=== PATIENT | male | born 1965 | race Caucasian/White ===

== ENCOUNTER 2016-11-06 09:52 | Emergency (ER) | payer SELFPAY ==
--- NOTE | 2016-11-06 10:37 | ER Document Report ---
HPI - HPI Patient complains to provider of: pain Pain Level: 5 Context: 51 yo male with hx/o chronic neck, back and knee pain. ran out of pain meds yesterday. was in pain management in [place]. Taking Dilaudid 8mg QID. Lost insurance, recently moved back to [place]. Denies any new injury or symptoms. Feels like he is going into withdrawls. Increased pain, nausea, skin crawling Associated Symptoms: None Exacerbated by: Movement Relieved by: Other - narcotics Similar symptoms previously: Yes Recently seen / treated by doctor: No - ROS Systems Reviewed and Negative: Yes All other systems reviewed and negative - DERM Skin Color: Normal, [place] Past Medical History - General Information source: Patient - Social History Smoking Status: Current Every Day Smoker Chew tobacco use (# tins/day): No Frequency of alcohol use: None Drug Abuse: None Lives with: Family, Spouse/Significant other Family History: Reviewed & Not Pertinent Renal/ Medical History: Denies: Hx Peritoneal Dialysis GI Medical History: Reports: Hx Gastroesophageal Reflux Disease Musculoskeltal Medical History: Reports Other - chronic neck, back and knee pain Past Surgical History: Reports: Hx Orthopedic Surgery - cervical fusion, lt shoulder 2002 - Immunizations Hx Diphtheria, Pertussis, Tetanus Vaccination: Yes Vertical Provider Document - CONSTITUTIONAL Agree With Documented VS: Yes Exam Limitations: No Limitations General Appearance: Mild Distress - INFECTION CONTROL TRAVEL OUTSIDE OF THE [place] IN LAST 30 DAYS: No - HEENT HEENT: Normal ENT Exam, PERRLA - NECK Neck: Supple - + lower cervical tenderness - RESPIRATORY Respiratory: Breath Sounds Normal, No Respiratory Distress O2 Sat by Pulse Oximetry: 100 - CARDIOVASCULAR Cardiovascular: Regular Rate, Regular Rhythm - BACK Back: Abnormal Inspection - + left lumbar spinal tenderness, + left SI tenderness - MUSCULOSKELETAL/EXTREMETIES Musculoskeletal/Extremeties: Tender - right supra and infrapatellar tenderness. no effusion. + medial compartment tenderness - NEURO Level of Consciousness: Awake, Alert, Appropriate Motor/Sensory: No Motor Deficit, No Sensory Deficit - DERM Integumentary: Warm, Dry Course - Re-evaluation Re-evalutation: 11/06/16 10:37 explained to patient ER does not manage chronic pain. checked [place] Controlled Substance Report, no recent prescriptions filled. pt has been established with Dr Small, [facility] [place]. Recommended he follow up with him immediately for further pain control. Pt aware that Rx will not be refilled in ED - Vital Signs Vital signs: Temp Pulse Resp BP Pulse Ox 98.3 F 71 18 121/86 H 100 11/06/16 09:54 11/06/16 09:54 11/06/16 09:54 11/06/16 09:54 11/06/16 09:54 Discharge - Discharge Clinical Impression: Chronic pain Qualifiers: Chronic pain type: other chronic pain Qualified Code(s): G89.29 - Other chronic pain Condition: Stable Disposition: HOME, SELF-CARE Instructions: Low Back Pain ([facility]), Oral Narcotic Medication ([facility]) Additional Instructions: Follow up with Dr Geovanny QUESADA for further pain management ED will not refill pain medication Prescriptions: Oxycodone HCl/Acetaminophen [Percocet 10-325 Mg Tablet] 1 each PO Q4H #25 tablet
[2016-11-06] MEDS ORDERED: OXYCODONE-ACETAMINOPHEN 5-325 MG TABLET PO ONE (10:41)
[2016-11-06 11:07] VITALS: BP 130/95
== END 2016-11-06 11:00 | disposition home or self-care (01) ==
LOC: ER 09:52
DX: G89.29 Other chronic pain (principal); M54.2 Cervicalgia; M54.9 Dorsalgia, unspecified; M25.561 Pain in right knee
CPT/HCPCS: 99283

== ENCOUNTER 2017-05-11 14:54 | Emergency (ER) | payer OTHER ==
--- NOTE | 2017-05-11 15:35 | ER Document Report ---
HPI - HPI Pain Level: 5 Notes: Patient is a 51-year-old male with a history of chronic right knee pain who presents to the ED complaining of right knee pain and left hip pain status post injury while at work on Friday. Patient states that he stepped between an area where there is no floor and hit his right knee and left hip off of a joist. Pt states that his hip became wedged. Pt has had pain to the iliac crest area as well as the knee. The pains do not radiate. Pt states that he has not been walking much at home bc of the pain. Pt states he has bad arthritis to the rt knee and meniscal tears, but does not have insurance to get the knee fixed at this time. He has not noticed any obvious swelling or bruising. Denies any drug allergies or other significant medical history. Denies any headache, fever , head injury, neck pain, chest pain, palpitations, syncope, cough, shortness of breath, wheeze, dyspnea, abdominal pain, nausea/vomiting/diarrhea, urinary retention, dysuria, hematuria, loss of control of bowel or bladder, numbness/ tingling, saddle anesthesia, muscle paralysis/weakness, or rash. - ROS Notes: REVIEW OF SYSTEMS: CONSTITUTIONAL : Denies fever, chills, or sweats. Denies recent illness. EENT: Denies eye, ear, throat, or mouth pain or symptoms. Denies nasal or sinus congestion or discharge. Denies throat, tongue, or mouth swelling or difficulty swallowing. CARDIOVASCULAR: Denies chest pain. Denies palpitations or racing or irregular heart beat. Denies ankle edema. RESPIRATORY: Denies cough, cold, or chest congestion. Denies shortness of breath, difficulty breathing, or wheezing. GASTROINTESTINAL: Denies abdominal pain or distention. Denies nausea, vomiting , or diarrhea. Denies blood in vomitus, stools, or per rectum. Denies black, tarry stools. Denies constipation. GENITOURINARY: Denies difficulty urinating, painful urination, burning, frequency, blood in urine, or discharge. MUSCULOSKELETAL: see hpi SKIN: Denies rash, lesions or sores. NEUROLOGICAL: Denies confusion or altered mental status. Denies passing out or loss of consciousness. Denies dizziness or lightheadedness. Denies headache. Denies weakness or paralysis or loss of use of either side. Denies problems with gait or speech. Denies sensory loss, numbness, or tingling. ALL OTHER SYSTEMS REVIEWED AND NEGATIVE. Dictation was performed using [employer] voice recognition software - DERM Skin Color: Normal Past Medical History - Social History Smoking Status: Unknown if Ever Smoked Family History: Reviewed & Not Pertinent Patient has suicidal ideation: No Patient has homicidal ideation: No Renal/ Medical History: Denies: Hx Peritoneal Dialysis GI Medical History: Reports: Hx Gastroesophageal Reflux Disease Past Surgical History: Reports: Hx Orthopedic Surgery - cervical fusion, lt shoulder 2003 - Immunizations Hx Diphtheria, Pertussis, Tetanus Vaccination: Yes Vertical Provider Document - CONSTITUTIONAL Agree With Documented VS: Yes Notes: PHYSICAL EXAMINATION: GENERAL: Well-appearing, well-nourished and in no acute distress. A&Ox4 LUNGS: Breath sounds clear to auscultation bilaterally and equal. No wheezes rales or rhonchi. HEART: Regular rate and rhythm without murmurs, rubs, gallops. ABDOMEN: Soft, nontender, nondistended abdomen. No guarding, no rebound. No masses appreciated. Normal bowel sounds present. No CVA tenderness bilaterally. No pulsatile mass. No ecchymosis, abrasion, laceration noted. Musculoskeletal: LROM to passive/active of the right knee. Strength 5+/5. No deficits noted. + anterior knee tenderness as well as to the patella and joint lines b/l. + tenderness to the left iliac crest area. No obvious ecchymosis, swelling, or deformity noted. FROM to the hip. Back: FROM to passive/active. Strength 5+/5. No vertebral point tenderness, stepoffs, or deformities. No other bony tenderness or ecchymosis. SLR negative b/l. Extremities: No cyanosis, clubbing, or edema b/l. Peripheral pulses 2+. Capillary refill less than 2 seconds. NEUROLOGICAL: Cranial nerves grossly intact. Normal speech, ataxic gait. Normal sensory, motor exams. Reflexes 2+ b/l. PSYCH: Normal mood, normal affect. SKIN: Warm, Dry, normal turgor, no rashes or lesions noted. - INFECTION CONTROL TRAVEL OUTSIDE OF THE U.S. IN LAST 30 DAYS: No - RESPIRATORY O2 Sat by Pulse Oximetry: 99 Course - Re-evaluation Re-evalutation: 05/11/17 16:23 Patient is an afebrile, well-hydrated, 51-year-old male who presents the ED with right knee pain and left hip pain status post injury, I suspect that this is a contusion based on H&P. Vitals are stable. PE is otherwise unremarkable for any neurovascular compromise, obvious tendon/ligament rupture, obvious fracture or dislocation. X-ray of the left hip and the right knee were also unremarkable for any acute pathology. Patient is continuing to ask for pain medication. Pt has received 600 tabs of oxycodone 15mg since December by his PCM for chronic pain with the last script of #60 being filled 5 days ago. Patient states that he lost his prescription when he fell. No narcotics will be given today. Toradol was given IM today. Recommend conservative measures for symptoms. Recheck with your PCM this week. Consider consult with orthopedics and physical therapy. I will send him home with a prescription for naproxen. Return to the ED with any worsening/concerning symptoms otherwise as reviewed in discharge. Patient is in agreement. - Vital Signs Vital signs: Temp Pulse Resp BP Pulse Ox 98.3 F 100 14 140/96 H 99 05/11/17 14:55 05/11/17 14:55 05/11/17 14:55 05/11/17 14:55 05/11/17 14:55 Discharge - Discharge Clinical Impression: Left hip pain Knee pain, right Qualifiers: Chronicity: acute Qualified Code(s): M25.561 - Pain in right knee Condition: Stable Disposition: HOME, SELF-CARE Instructions: Knee Exercise Program ([facility]), Contusion ([facility]), Ice & Elevation ( [facility]) Additional Instructions: Rest, Ice, Compression, Elevation Tylenol/ibuprofen as needed Light stretches daily Strength exercises as able Moist heat and massage may help F/u with your PCP in 3-5 days for a recheck Consider consult(s) with Orthopedics/physical therapy for ongoing/worsening symptoms Return to the ED with any worsening symptoms and/or development of fever, headache, chest pain, palpitations, syncope, shortness of breath, trouble breathing, abdominal pain, n/v/d, muscle weakness/paralysis, numbness/tingling, swelling, redness, or other worsening symptoms that are concerning to you. Prescriptions: Naproxen 500 mg PO BID PRN #30 tablet PRN Reason: Forms: Elevated Blood Pressure Referrals: BAKARI BUNN DO [Primary Care Provider] - Follow up in 3-5 days [facility] [Provider Group] - Follow up as needed
[2017-05-11] MEDS ORDERED: KETOROLAC TROMETHAMINE INJ/PF 30 MG/1 ML SDV IM ONE (15:59)
--- NOTE | 2017-05-11 16:16 | RADIOLOGY REPORT (SQ) ---
EXAM DESCRIPTION: HIP LEFT AP/LATERAL COMPLETED DATE/TIME: 05/11/2017 4:07 pm REASON FOR STUDY: Lt hip pain s/p injury COMPARISON: None. NUMBER OF VIEWS: Two views. TECHNIQUE: AP pelvis and additional frog-leg view of the left hip. LIMITATIONS: None. FINDINGS: MINERALIZATION: Normal. LEFT HIP: No fracture or dislocation. Degenerative changes. No worrisome bone lesions. RIGHT HIP: No fracture or dislocation. Degenerative changes. No worrisome bone lesions. PUBIS AND ISCHIUM: No fracture. PELVIS: No fracture. SACRUM: No fracture or dislocation. No worrisome bone lesions. LOWER LUMBAR SPINE: No fracture or dislocation. No worrisome bone lesions. No significant disc disea se. SOFT TISSUES: No findings. OTHER: No other significant finding. IMPRESSION: DEGENERATIVE CHANGES. NO RADIOGRAPHIC EVIDENCE OF ACUTE INJURY. TECHNICAL DOCUMENTATION: JOB ID: [id number] [employer]- All Rights Reserved
--- NOTE | 2017-05-11 16:17 | RADIOLOGY REPORT (SQ) ---
EXAM DESCRIPTION: KNEE RIGHT 4 VIEWS COMPLETED DATE/TIME: 05/11/2017 4:07 pm REASON FOR STUDY: rt knee pain s/p injury COMPARISON: 09/02/2014. NUMBER OF VIEWS: Four views. TECHNIQUE: AP, lateral, and both oblique radiographic images acquired of the right knee. LIMITATIONS: None. FINDINGS: MINERALIZATION: Normal. BONES: No acute fracture or dislocation. No worrisome bone lesions. JOINT: No effusion. SOFT TISSUES: No soft tissue swelling. No radio-opaque foreign body. OTHER: No other significant finding. IMPRESSION: NEGATIVE STUDY OF THE RIGHT KNEE. NO RADIOGRAPHIC EVIDENCE OF ACUTE INJURY. TECHNICAL DOCUMENTATION: JOB ID: [id number] [employer]- All Rights Reserved
[2017-05-11 16:37] VITALS: BP 128/81
== END 2017-05-11 16:37 | disposition home or self-care (01) ==
LOC: ER 14:54
DX: T14.90XA Injury, unspecified, initial encounter (principal); M25.552 Pain in left hip; M25.561 Pain in right knee; W22.8XXA Striking against or struck by other objects, initial encounter; Y99.0 Civilian activity done for income or pay; G89.29 Other chronic pain; Z79.891 Long term (current) use of opiate analgesic
CPT/HCPCS: 99283; 96372; 73502; 73564; J1885

== ENCOUNTER 2017-08-07 17:30 | Emergency (ER) | payer SELFPAY ==
[2017-08-07 17:48] VITALS: BP 130/83
--- NOTE | 2017-08-07 19:04 | ER Document Report ---
ED General - General Chief Complaint: Abnormal Lab Results Stated Complaint: ABNORMAL LAB Time Seen by Provider: 08/07/17 18:31 Mode of Arrival: Ambulatory Information source: Patient TRAVEL OUTSIDE OF THE [place] IN LAST 30 DAYS: No - HPI Patient complains to provider of: Need lab testing Notes: Patient arrives stating that he donated plasma about a month ago and received a letter stating that he may have hepatitis C. Comes the emergency department to get confirmation of this. He states that he does not currently have insurance so he cannot get into his primary care doctor and he is concerned and would like further testing. He does have a long former history of IV drug use, he also states that he got tattoos while he was then present. States that he is not used drugs for the last several years. He denies ever sharing needles with anyone. Currently sexually active with one partner. He denies any symptoms at all, but was concerned and wanted to be evaluated. He denies any abdominal pain , fever, nausea, vomiting, diarrhea. No rash. He denies any other complaints. - Related Data Allergies/Adverse Reactions: No Known Allergies Allergy (Verified 11/06/16 10:20) Past Medical History - Social History Smoking Status: Unknown if Ever Smoked Family History: Reviewed & Not Pertinent Renal/ Medical History: Denies: Hx Peritoneal Dialysis GI Medical History: Reports: Hx Gastroesophageal Reflux Disease Past Surgical History: Reports: Hx Orthopedic Surgery - cervical fusion, lt shoulder 2003 - Immunizations Hx Diphtheria, Pertussis, Tetanus Vaccination: Yes Review of Systems - Review of Systems -: Yes All other systems reviewed and negative Physical Exam - Vital signs Vitals: Temp Pulse BP Pulse Ox 98.4 F 88 130/83 H 97 08/07/17 17:47 08/07/17 17:47 08/07/17 17:47 08/07/17 17:47 - Notes Notes: GENERAL: alert, cooperative, nontoxic, no distress. HEAD: normocephalic, atraumatic EYES: conjunctiva pink without discharge, no external redness or swelling. EARS: no external swelling, no external redness NOSE: atraumatic, no external swelling MOUTH/THROAT: mucous membranes moist and pink, posterior pharynx without erythema, swelling, exudate. No trismus or drooling. NECK: soft, supple, full range of motion, no meningismus. CHEST: no distress, lungs clear and equal throughout. No wheezing, rales, rhonchi. CARDIAC: regular rate and rhythm, no murmur, normal capillary refill, normal pulses. No peripheral edema noted. ABDOMEN: Soft, nontender. No mass. No hepatosplenomegaly. No rebound tenderness or guarding. No ascites. BACK: full range of motion, no CVA tenderness. EXTREMITIES: full range of motion of all extremities. No redness, no swelling. NEURO: alert and oriented x 3, no focal deficits, full range of motion of all extremities. PYSCH: appropriate mood, affect. Patient is cooperative. SKIN: pink, warm, dry, no rash. Course - Re-evaluation Re-evalutation: 08/07/17 20:50 Patient is nontoxic appearing with stable vitals. The patient comes emergency department today because he received a letter from his plasma donation center that he was positive for hepatitis C. The patient denies any complaints at all but wanted to have his blood work rechecked. His liver function testing in the emergency department are unremarkable. CBC is unremarkable. Hepatitis panel as well as HIV panel are currently pending. The patient was instructed that he will receive a phone call if he has any positive results but that if there are no positive results he will likely not receive any phone calls. Patient verbalized understanding of this. He may call Friday if he has not heard from us just to be sure that all of his tests were negative. At this point the patient requires no immediate interventions and will be discharged home pending the results of his hepatitis and HIV screen. The patient is noted to have elevated blood pressure during today's emergency department visit. The patient was informed of this finding. The patient was instructed that this may be related to pre-hypertension and requires further evaluation with a primary care provider. The patient has no hypertensive symptoms at this time. The patient's emergency department workup and current diagnosis were explained to the patient and or family. Follow-up instructions were provided. Medications if prescribed were discussed. Instructions for when to return to the emergency department including specific worrisome symptoms were discussed with the patient and/or family. - Vital Signs Vital signs: Temp Pulse Resp BP Pulse Ox 98.4 F 88 130/83 H 97 08/07/17 17:47 08/07/17 17:47 08/07/17 17:47 08/07/17 17:47 - Laboratory Result Diagrams: 08/07/17 19:40 08/07/17 19:40 Laboratory results interpreted by me: 08/07/17 19:40 ALT 103 H Discharge - Discharge Clinical Impression: Worried well Condition: Stable Disposition: HOME, SELF-CARE Instructions: Hepatitis ([facility]) Additional Instructions: Drink lots of fluids. Avoid taking acetaminophen. Avoid drinking alcohol. Get established with a primary care doctor at the next available appointment. Follow-up as needed with your primary care doctor. Follow-up sooner for increasing pain, high fever, persistent vomiting, blood in her stool or vomit, or for any further concerns. Your blood pressure was elevated during today's visit. Have this rechecked with your doctor. Forms: Elevated Blood Pressure, Smoking Cessation Education Referrals: BAKARI BUNN DO [Primary Care Provider] - Follow up as needed [facility] [Provider Group] - Follow up as needed
[2017-08-07 19:55] LABS: ABSOLUTE BASOPHILS # (AUTO) 0.1 10^3/uL (0.0-0.2); ABSOLUTE EOSINOPHILS # (AUTO) 0.3 10^3/uL (0.0-0.6); ABSOLUTE LYMPHOCYTES (AUTO) 2.6 10^3/uL (0.5-4.7); ABSOLUTE MONOCYTES (AUTO) 0.8 10^3/uL (0.1-1.4); ABSOLUTE NEUT (AUTO) 4.2 10^3/uL (1.7-8.2); BASOPHILS % (AUTO) 0.8 % (0-2); EOSINOPHILS % (AUTO) 4.3 % (0-6); HEMATOCRIT 45.7 % (37.9-51.0); HEMOGLOBIN 15.7 g/dL (13.5-17.0); LYMPHOCYTES % (AUTO) 31.8 % (13-45); MEAN CORPUSCULAR HGB CONC 34.4 g/dL (32.0-36.0); MEAN CORPUSCULAR VOLUME 93 fl (80-97); MONOCYTES % (AUTO) 10.5 % (3-13); PLATELET COUNT 178 10^3/uL (150-450); RED CELL DISTRIBUTION WIDTH 12.5 % (11.5-14.0); SEGMENTED NEUTROPHILS % (AUTO) 52.6 % (42-78); TOTAL CELLS COUNTED % (AUTO) 100 %; WHITE BLOOD COUNT 8.1 10^3/uL (4.0-10.5)
[2017-08-07 20:14] LABS: ALANINE AMINOTRANSFERASE 103 U/L (21-72); ALBUMIN 4.5 g/dL (3.5-5.0); ALKALINE PHOSPHATASE 79 U/L (38-126); ANION GAP 9 (5-19); ASPARTATE AMINO TRANSFERASE 51 U/L (17-59); BILIRUBIN,DIRECT 0.2 mg/dL (0.0-0.4); BLOOD UREA NITROGEN 13 mg/dL (7-20); CALCIUM 9.8 mg/dL (8.4-10.2); CARBON DIOXIDE 29 mmol/L (22-30); CHLORIDE 101 mmol/L (98-107); GLUCOSE 90 mg/dL (75-110); POTASSIUM 4.3 mmol/L (3.6-5.0); SODIUM 138.7 mmol/L (137-145); TOTAL PROTEIN 7.4 g/dL (6.3-8.2)
[2017-08-09 06:39] LABS: HEPATITIS A AB IGM Negative (Negative); HEPATITIS B CORE AB IGM Negative (Negative); HEPATITS B SURFACE ANTIGEN Negative (Negative)
[2017-08-10 08:44] LABS: HEPATITIS C VIRUS ANTIBODY >11.0 s/co ratio (0.0-0.9)
== END 2017-08-07 21:15 | disposition home or self-care (01) ==
LOC: ER 17:30
DX: Z71.1 Person with feared health complaint in whom no diagnosis is made (principal); R79.89 Other specified abnormal findings of blood chemistry
CPT/HCPCS: 36415; 80053; 80074; 85025; 86701; 86702; 99283